=== PATIENT | male | born 1950 | race Caucasian/White ===

== ENCOUNTER → 2017-08-14 | Day surgery (SDC) | payer MEDICARE ==
[~2017-08-14] VITALS: Ht 182.9 cm; Wt 95.7 kg
[~2017-08-14] MED LIST: 0.9% Sodium Chloride 1,000 ML IV SCH; AMLO10TA3 PO; ASPI-973 PO; ATEN100T PO; EZET10TA PO; LEVO200T PO; RAMI5CAP PO; Sodium Chloride LOK Flush 10 mL Syringe IV PRN; fentaNYL-PF 50 mCg/mL 2 mL Inj IVPUSH PRN
[2017-08-14 07:54] VITALS: BP 145/82; PULSE 57; RESP 14; O2SAT 98
[2017-08-14 09:12] VITALS: BP 127/61; PULSE 54; RESP 14; O2SAT 95
[2017-08-14 09:25] VITALS: BP 115/70; PULSE 54; RESP 12; O2SAT 96
[2017-08-14 09:32] VITALS: BP 138/74; PULSE 54; RESP 12; O2SAT 96
--- NOTE | 2017-08-14 09:50 | ENDO ---
[address] [address] ENDOSCOPY PROCEDURE PATIENT: JULIA LEPE : 1950 MR#: [id number] ADMIT: 08/14/2017 JOB ID: [id number] PROCEDURE: Colonoscopy. INDICATION: Screening. ASA CLASSIFICATION: 2. MALLAMPATI SCORE: 2. MEDICATIONS: Versed 4 mg, fentanyl 100 mcg. INSTRUMENT USED: PCF-H190-AL. PREPARATION QUALITY: The prep of the right colon was poor. The remainder of the colon was otherwise fair. PROCEDURE DETAILS: After informed consent was obtained, the patient was brought into the GI suite, where he was placed on oxygen via nasal cannula and monitored with continuous pulse oximeter, telemetry, and blood pressure monitoring. A time-out was performed. Then, he was placed in a left lateral decubitus position. Medications were administered for sedation. Digital rectal exam was performed which was unremarkable. The colonoscope was then inserted into the rectum and advanced under direct visualization to the cecum, which was identified by the presence of the ileocecal valve and appendiceal orifice. Once the cecum was reached, the colonoscope was withdrawn back into the rectum as the mucosa and lumen were examined. In the rectum, retroflexion was performed. Following retroflexion, remaining air in the rectum was suctioned and the procedure was completed. FINDINGS: 1. In the cecum, there was an approximately 4 mm sessile polyp that was removed with a cold snare. 2. In the ascending colon, there was a flat, 6 mm polyp that was lifted using normal saline and then removed with a hot snare. 3. In the transverse colon, there was an approximately 5 mm sessile polyp that was removed with a cold snare. 4. In the sigmoid colon, there was a pedunculated polyp that measured approximately 7 mm that was removed with a hot snare. 5. In the distal rectum, there was an approximately 3-4 mm polyp that was removed with cold snare. 6. Scattered diverticula were seen throughout the left side of the colon. IMPRESSION: 1. Cecal polyp. 2. Ascending colon polyp. 3. Transverse colon polyp. 4. Sigmoid polyp. 5. Rectal polyp. 6. Left-sided diverticulosis. 7. Poor prep. RECOMMENDATIONS: 1. Avoid NSAIDs and anticoagulants for 72 hours. 2. Repeat colonoscopy with a two day prep. 3. Fiber rich diet. COMPLICATIONS: None. ESTIMATED BLOOD LOSS: Less than 5 mL.
--- NOTE | 2017-08-15 17:41 | PATH ---
SURGICAL PATHOLOGY Attending Physician:Nakita Rizo CASE STATUS: Signed Out PATIENT NAME: JULIA LEPE PID: [id number] : 1950 DATE COLLECTED:08/14/2017 22:05 SPECIMEN: 1: Colon, Polyp 2: Colon, Polyp 3: Colon, Polyp 4: Colon, Polyp 5: Rectum, Biopsy CLINICAL HISTORY: 1). TRANSVERSE POLYP X1 2). CECAL POLYP X1 3). ASCENDING POLYP X1 4). SIGMOID POLYP X1 5). RECTAL POLYP X1 FINAL DIAGNOSIS: 1.TRANSVERSE COLON POLYP, POLYPECTOMY: TUBULAR ADENOMA. 2.CECAL POLYP, BIOPSY: COLONIC MUCOSA WITH NO DIAGNOSTIC ABNORMALITY CONSISTENT WITH POLYPOID REDUNDANCY. 3.ASCENDING COLON POLYP, POLYPECTOMY: TUBULAR ADENOMA. 4.SIGMOID COLON POLYP, POLYPECTOMY: TUBULOVILLOUS ADENOMA. 5.RECTAL POLYP, BIOPSY: TUBULAR ADENOMA (1 OF 2 PIECES). ICD10 D12.6 GROSS DESCRIPTION: The specimen is received in five formalin filled containers labeled with the patient's name. 1). The specimen is labeled "trans" and consists of 3 portions of tissue which aggregate to 0.4 x 0.3 x 0.2 CM. The specimen is entirely submitted in cassette 1A. 2). The specimen is labeled "cecal" and consists of an extremely tiny less than 0.1 CM portion of tissue which is entirely submitted in cassette 2A. 3). The specimen is labeled "ascen" and consists of 2 portions of tissue which aggregate to 0.4 x 0.4 x 0.3 CM. The specimen is entirely submitted in cassettes 3A. 4). The specimen is labeled "sigmoid" and consists of a 0.5 x 0.5 x 0.5 CM portion of tissue which is entirely submitted in cassette 4A. 5). The specimen is labeled "rectal" and consists of a 0.2 x 0.2 x 0.2 CM portion of tissue which is entirely submitted in cassette 5A. 08/14/2017DC MICRO DESCRIPTION: See diagnosis. ICD-9 CODES: CPT CODES: 1: 58894 2: 41859 3: 00108 4: 90786 5: 57954 Electronically Signed Out Nikolas Márquez MD, Ph.D. [facility] [address] [place] [address], [place] [address] Technical component performed at [facility], [address], [place], [address]
== END | disposition home or self-care (01) ==
LOC: END 00:42
PROVIDERS: ATTEND Internal Medicine Gastroenterology
DX: Z12.11 Encounter for screening for malignant neoplasm of colon (principal); D12.2 Benign neoplasm of ascending colon; D12.3 Benign neoplasm of transverse colon; D12.5 Benign neoplasm of sigmoid colon; D12.8 Benign neoplasm of rectum; K63.5 Polyp of colon; K57.30 Diverticulosis of large intestine without perforation or abscess without bleeding; Z80.0 Family history of malignant neoplasm of digestive organs; I10 Essential (primary) hypertension; E78.00 Pure hypercholesterolemia, unspecified; E03.9 Hypothyroidism, unspecified; L93.0 Discoid lupus erythematosus; K73.9 Chronic hepatitis, unspecified; M35.3 Polymyalgia rheumatica; Z79.82 Long term (current) use of aspirin
CPT/HCPCS: 45381; 45385; 99153; G0500; J2250; J3010; J7030